=== PATIENT | female | born 1990 | race Caucasian/White ===

== ENCOUNTER 2017-04-17 17:10 | Emergency (ER) | payer BC, OTHER ==
[~2017-04-17] VITALS: Ht 167.6 cm; Wt 75.7 kg
[~2017-04-17 17:10] MED LIST: ALBU6.7H INH; PROM6.257 PO; TYLE500T PO; ZITH250T PO
[2017-04-17 19:34] LABS: BLOOD, URINE NEG (NEG); COMMENT (UR) CULT NOT INDICATED; CULTURE IF INDICATED CULT NOT INDICATED; GLUCOSE,URINE NEG (NEG); KETONE, URINE NEG (NEG); NITRITE,URINE NEG (NEG); PH, URINE 7.5 (5.0-8.5); URINE COLOR COLORLESS (YELLW/STRAW)
[2017-04-17 19:38] LABS: HEMATOCRIT 32.9 % (35.0-46.0); MEAN CORPUSCULAR HEMOGLOBIN 30.3 PG (27.0-34.0); MEAN CORPUSCULAR HGB CONC 34.8 % (32.0-36.0); PLATELET COUNT 276 TH/MM3 (150-450); RED BLOOD COUNT 3.78 MIL/MM3 (4.00-5.30); RED CELL DISTRIBUTION WIDTH 12.9 % (11.6-17.2); REVIEW FLAG FINAL; WHITE BLOOD COUNT 13.1 TH/MM3 (4.0-11.0)
--- NOTE | 2017-04-17 20:10 | PD ---
HPI Travel History International Travel<30 Days: No Contact w/Intl Traveler<30Days: No Known Affected Area: No History of Present Illness HPI Pt is a 26yo at 20 weeks and 4 days presenting with left sided flank pain. pain started last night and lasted a couple of hours. Pain returning this morning and radiated anteriorly. No vaginal bleeding or leaking. Denies any urinary symptoms. 'flutters' care with Dr Duran. Weeks Gestation: 39 Para: 0 : 1 History Past Medical History Narrative Medical h/o Nephrolithiasis. H/p Lithotrypsy 2007. Medical History: Denies Significant Hx Obstetric History Obstetric History PRIMIGRAVIDA Past Surgical History Surgical History: No Previous Surgery Family History Family History: Negative Social History Alcohol Use: No Tobacco Use: No Substance Abuse: No Allergies-Medications (Allergen,Severity, Reaction): Coded Allergies: nickel (Verified Allergy, Severe, hives, 04/17/17) Home Meds Active Scripts Promethazine W/Codeine (Phenergan W/Codeine) 6.25-10 mg/5 ml Ml, 2.5 ML PO qhsprn, #120 0 Refills Prov:AUSTIN COX M.D. 08/07/08 Azithromycin (Zithromax Z-Alex) 250 Mg Tab, 250 MG PO DIRECTED for 5 Days, 0 Refills 500 MG (2 TABLETS) PO ON DAY 1, THEN 250 MG (1 TABLET) PO ON DAYS 2 TO 5. Prov:AUSTIN COX M.D. 08/07/08 Albuterol Sulfate (Proventil Hfa) 6.7 Gm Aero, 2 PUFF INH Q4 for 7 Days, 0 Refills Prov:AUSTIN COX M.D. 08/07/08 Reported Medications Acetaminophen (Acetaminophen) 500 Mg Tab, 1000 MG PO Q6HPRN, 0 Refills 08/07/08 Review of Systems Except as stated in HPI: all other systems reviewed are Neg Physical Exam Narrative GENERAL: Well-nourished, well-developed patient. SKIN: Warm and dry. HEAD: Normocephalic and atraumatic. EYES: No scleral icterus. No injection or drainage. ENT: No nasal drainage noted. Mucous membranes pink. Airway patent. NECK: Supple, trachea midline. No JVD. CARDIOVASCULAR: Regular rate and rhythm without murmurs, gallops, or rubs. RESPIRATORY: Breath sounds equal bilaterally. No accessory muscle use. BREASTS: Bilateral exam showed no masses , no retractions, no nipple discharge. ABDOMEN/GI: Abdomen soft, non-tender, bowel sounds present, no rebound, no guarding left flank tenderness, Gravid to [20 ] weeks size Fundal Height: [-] GENITOURINARY: External Genitalia: intact and normal in appearance BUS glands: [-] Cervix: [firm] Dilatation: [closed] Effacement: [-uneffaced] Station: [-] Presentation: [] Membranes: [intact or ruptured] Uterine Contractions: [-] FHT's: Category: [-] Baseline: [-] Reactive: [-] Variability: [-] Decels: [-] EXTREMITIES: No cyanosis or edema. BACK: Nontender without obvious deformity. No CVA tenderness. NEUROLOGICAL: Awake and alert. Motor and sensory grossly within normal limits. Five out of 5 muscle strength in all muscle groups. Normal speech. Data Data Vital Signs Reviewed: Yes Orders Orders Vital Signs (Adult) .ON ADMISSION (04/17/17 18:52) ^ Labor Status (04/17/17 18:52) Urinalysis - C+S If Indicated (04/17/17 18:52) Diet Liquid (04/17/17 Dinner) Cbc No Diff, Includes Plts (04/17/17 18:52) Labs Laboratory Tests Test 04/17/17 18:40 04/17/17 18:45 Urine Color COLORLESS Urine Turbidity CLEAR Urine pH 7.5 Urine Specific Becker 1.004 Urine Protein NEG Urine Glucose (UA) NEG Urine Ketones NEG Urine Occult Blood NEG Urine Nitrite NEG Urine Bilirubin NEG Urine Urobilinogen LESS THAN 2.0 Urine Leukocyte Esterase NEG Microscopic Urinalysis Comment CULT NOT INDICATED White Blood Count 13.1 Red Blood Count 3.78 Hemoglobin 11.4 Hematocrit 32.9 Mean Corpuscular Volume 87.0 Mean Corpuscular Hemoglobin 30.3 Mean Corpuscular Hemoglobin Concent 34.8 Red Cell Distribution Width 12.9 Platelet Count 276 Mean Platelet Volume 8.6 MDM Medical Record Reviewed: Yes Plan Pyelonephritis ruled out. UA wnl, WCC wnl. Advised liberal fluids. Advised modified bed rest ( note provided for work 04-18-2017) Diagnosis Diagnosis: Primary Impression: 20 weeks gestation of Additional Impression: Abdominal pain affecting Disposition: 01 DISCHARGE HOME Condition: Stable Patient Instructions: General Instructions, Diet (GEN), Movement (ED), Abdominal Pain in (ED) Departure Forms: Tests/Procedures Taj Doll MD Apr 17, 2017 20:10
== END 2017-04-17 19:40 | disposition home or self-care (01) ==
LOC: HOBED 17:10
DX: O26.892 Other specified pregnancy related conditions, second trimester (principal); R10.9 Unspecified abdominal pain; Z3A.20 20 weeks gestation of pregnancy
CPT/HCPCS: 59025; 81001; 85027

== ENCOUNTER 2017-07-26 21:34 | Emergency (ER) | payer BC ==
--- NOTE | 2017-07-26 22:27 | PD ---
HPI Chief Complaint vaginal pressure since about 16:00 Bilateral low back pain 34 weeks and 6 days Date Seen: Jul 26, 2017 Time Seen: 22:10 Travel History International Travel<30 Days: No Contact w/Intl Traveler<30Days: No Known Affected Area: No History of Present Illness HPI Patient is a 27 yo G 1 P0 at 34 weeks and 6 days. [facility] 08-31-[address] Lim. Pt states that pressure in vagina is intermittent, sharp. Denies any dysuria, but feels urge to void with episodes of sharp pain. Associated back pain. Active movements. No abdominal pain or contractions. No vaginal bleeding or discharge. Active movements. Weeks Gestation: 34 Para: 0 : 1 History Past Medical History Medical History: Denies Significant Hx Obstetric History Obstetric History Primigravida Past Surgical History Surgical History: No Previous Surgery Family History Family History: Negative Social History Alcohol Use: No Tobacco Use: No Substance Abuse: No Allergies-Medications (Allergen,Severity, Reaction): Coded Allergies: nickel (Verified Allergy, Severe, hives, 04/17/17) Home Meds Active Scripts Promethazine W/Codeine (Phenergan W/Codeine) 6.25-10 mg/5 ml Ml, 2.5 ML PO qhsprn, #120 0 Refills Prov:AUSTIN COX M.D. 08/07/08 Azithromycin (Zithromax Z-Alex) 250 Mg Tab, 250 MG PO DIRECTED for 5 Days, 0 Refills 500 MG (2 TABLETS) PO ON DAY 1, THEN 250 MG (1 TABLET) PO ON DAYS 2 TO 5. Prov:AUSTIN COX M.D. 08/07/08 Albuterol Sulfate (Proventil Hfa) 6.7 Gm Aero, 2 PUFF INH Q4 for 7 Days, 0 Refills Prov:AUSTIN COX M.D. 08/07/08 Reported Medications Acetaminophen (Acetaminophen) 500 Mg Tab, 1000 MG PO Q6HPRN, 0 Refills 08/07/08 Review of Systems Except as stated in HPI: all other systems reviewed are Neg Physical Exam Narrative GENERAL: Well-nourished, well-developed patient. SKIN: Warm and dry. HEAD: Normocephalic and atraumatic. EYES: No scleral icterus. No injection or drainage. ENT: No nasal drainage noted. Mucous membranes pink. Airway patent. NECK: Supple, trachea midline. No JVD. CARDIOVASCULAR: Regular rate and rhythm without murmurs, gallops, or rubs. RESPIRATORY: Breath sounds equal bilaterally. No accessory muscle use. BREASTS: Bilateral exam showed no masses , no retractions, no nipple discharge. ABDOMEN/GI: Abdomen soft, non-tender, bowel sounds present, no rebound, no guarding NO CVA TENDERNESS. Tender over both hips. Gravid to [35] weeks size Fundal Height: [35cm] GENITOURINARY: External Genitalia: intact and normal in appearance BUS glands: [wnl] Cervix: [firm] Dilatation: [closed] Effacement: [30%] Station: [high] Presentation: [-] Membranes: [intact] Uterine Contractions: [none] FHT's: Category: [1] Baseline: [120s] Reactive: [-] Variability: [moderate] Decels: [none] EXTREMITIES: No cyanosis or edema. BACK: Nontender without obvious deformity. No CVA tenderness. NEUROLOGICAL: Awake and alert. Motor and sensory grossly within normal limits. Five out of 5 muscle strength in all muscle groups. Normal speech. Data Data Vital Signs Reviewed: Yes [facility] Medical Record Reviewed: Yes Plan Patient is a 27 yo at 34 weeks and 6 days who presented to ER with c/o intermittent vaginal pressure. She has no urinary symptoms and no uterine contractions palpated, felt or seen on TOCO. Cervix is closed and high. We will send UA. UA shows large LE, Diagnosis Diagnosis: Primary Impression: 34 weeks gestation of Additional Impressions: Vaginal discomfort UTI (urinary tract infection) Disposition: 01 DISCHARGE HOME Condition: Good Scripts Nitrofurantoin Monohydrate Macrocrystals (Macrobid) 100 Mg Cap 100 MG PO BID for Infection, #10 CAP 0 Refills Prov: Taj Doll MD 07/26/17 Patient Instructions: General Instructions, Having Your Baby: The Labor Process (GEN) Departure Forms: Tests/Procedures Taj Doll MD Jul 26, 2017 22:27
[2017-07-26 22:41] LABS: AMORPHOUS SEDIMENT, URINE RARE; BACTERIA, URINE MANY /hpf; BILIRUBIN, URINE NEG (NEG); BLOOD, URINE NEG (NEG); GLUCOSE,URINE NEG (NEG); KETONE, URINE NEG (NEG); NITRITE,URINE NEG (NEG); PH, URINE 6.5 (5.0-8.5); SQUAMOUS EPITHELIAL CELL URINE 8 /hpf (0-5); URINE COLOR LIGHT-YELLOW (YELLW/STRAW); URINE LEUKOCYTE ESTERASE LARGE (NEG)
[2017-07-26] MEDS ORDERED: MACR100C2 PO (22:49)
[2017-07-26] MEDS ORDERED: NITROFURANTOIN MONOHYD MACROCR 100 MG CAP PO ONE (23:00)
== END 2017-07-26 23:17 | disposition home or self-care (01) ==
LOC: HOBED 21:34
DX: O23.43 Unspecified infection of urinary tract in pregnancy, third trimester (principal); Z3A.01 Less than 8 weeks gestation of pregnancy
CPT/HCPCS: 59025; 81001; 87086

== ENCOUNTER 2017-08-10 17:01 | Emergency (ER) | payer BC ==
[~2017-08-10 17:01] MED LIST changes: +MACR100C2 PO
--- NOTE | 2017-08-10 18:54 | PD ---
HPI Chief Complaint Leaking of fluid Travel History International Travel<30 Days: No Contact w/Intl Traveler<30Days: No Known Affected Area: No History of Present Illness HPI 27y/o , IUP at 37.0 care uncomplicated. Patient presents complaining of leaking of a small amount of fluid about 5-6 times today. She reports that she used the bathroom at 9am, and 20 minutes later she felt "wet." She thinks this happened about 5 or 6 times today. There were no aggravating or alleviating factors, she denies recent intercourse. She reports that she believes she would have soaked through a panty liner. She reports good movement. She reports contractions are about every 15 minutes and mild in nature. She denies any vaginal bleeding. Weeks Gestation: 37 Para: 0 : 1 History Past Medical History Medical History: Denies Significant Hx Obstetric History Obstetric History Past Surgical History Narrative Surgical [place] teeth extraction Family History Family History: Negative Social History Alcohol Use: No Tobacco Use: No Substance Abuse: No Allergies-Medications (Allergen,Severity, Reaction): Coded Allergies: nickel (Verified Allergy, Severe, hives, 04/17/17) Home Meds Active Scripts Nitrofurantoin Monohydrate Macrocrystals (Macrobid) 100 Mg Cap, 100 MG PO BID for Infection, #10 CAP 0 Refills Prov:Taj Doll MD 07/26/17 Promethazine W/Codeine (Phenergan W/Codeine) 6.25-10 mg/5 ml Ml, 2.5 ML PO qhsprn, #120 0 Refills Prov:AUSTIN COX M.D. 08/07/08 Azithromycin (Zithromax Z-Alex) 250 Mg Tab, 250 MG PO DIRECTED for 5 Days, 0 Refills 500 MG (2 TABLETS) PO ON DAY 1, THEN 250 MG (1 TABLET) PO ON DAYS 2 TO 5. Prov:AUSTIN COX M.D. 08/07/08 Albuterol Sulfate (Proventil Hfa) 6.7 Gm Aero, 2 PUFF INH Q4 for 7 Days, 0 Refills Prov:AUSTIN COX M.D. 08/07/08 Reported Medications Acetaminophen (Acetaminophen) 500 Mg Tab, 1000 MG PO Q6HPRN, 0 Refills 08/07/08 Review of Systems Except as stated in HPI: all other systems reviewed are Neg Physical Exam Narrative GENERAL: Well-nourished, well-developed patient. SKIN: Warm and dry. HEAD: Normocephalic and atraumatic. EYES: No scleral icterus. No injection or drainage. ENT: No nasal drainage noted. Mucous membranes pink. Airway patent. NECK: Supple, trachea midline. No JVD. CARDIOVASCULAR: Regular rate and rhythm without murmurs, gallops, or rubs. RESPIRATORY: Breath sounds equal bilaterally. No accessory muscle use. BREASTS: Deferred ABDOMEN/GI: Abdomen soft, non-tender, bowel sounds present, no rebound, no guarding Gravid GENITOURINARY: External Genitalia: intact and normal in appearance. Grossly normal rugated , no cervical or vaginal masses, physiologic discharge, speculum examination revealed no evidence of gross rupture of membranes and negative Valsalva. Amniosure negative. SVE 1/thick/high/posterior FHT's: heart tones are in the 150s with moderate long-term variability, good accelerations, no decelerations noted. This is a reactive NST and category 1 heart rate tracing EXTREMITIES: No cyanosis or edema. BACK: Nontender without obvious deformity. NEUROLOGICAL: Awake and alert. Motor and sensory grossly within normal limits. Five out of 5 muscle strength in all muscle groups. Normal speech. Psychiatric: Grossly normal memory and affect Muscular skeletal: Grossly normal range of motion, gait, muscle strength MDM Plan Assessment/plan: 1. IUP at 37.0 2. LOF: No evidence of rupture of membranes with negative amniosure and negative examination. Normal ELIZABETH on limited bedside ultrasound. Strict R OM precautions 3. No evidence of labor: Strict labor precautions 4. well-being: Reassuring testing with reactive NST and category 1 heart rate tracing. kick counts daily 5. Follow up with primary OB in 2-3 days or sooner if needed Diagnosis Diagnosis: Primary Impression: 37 weeks gestation of Additional Impression: No leakage of amniotic fluid into vagina Disposition: 01 DISCHARGE HOME Condition: Good Britt Shafer MD Aug 10, 2017 18:54
--- NOTE | 2017-08-10 20:19 | PD ---
History of Present Illness History of Present Illness OB U/S report Indications: IUP at 37w, LOF U/S was performed for ELIZABETH only, no anatomy was reviewed. The fetus is in the cephalic presentation with good movement noted. The ELIZABETH is 13.08 ( 4.58, 4.55, 2.06, 1.89) and is normal. Final dx: IUP at 37w, no evidence of labor or PROM F/U as clinically indicated Britt Shafer MD Aug 10, 2017 20:19
== END 2017-08-10 20:23 | disposition home or self-care (01) ==
LOC: HOBED 17:01
DX: O26.93 Pregnancy related conditions, unspecified, third trimester (principal)
CPT/HCPCS: 59025; 76815; 84112

== ENCOUNTER 2017-08-20 11:50 | Inpatient (IN) | payer BC ==
[~2017-08-20] VITALS: Ht 167.6 cm; Wt 84.8 kg
[2017-08-20] VITALS (10 sets, daily range): BP systolic 96–121; BP diastolic 57–75; PULSE 81–90; RESP 16–18; TEMP 97.8–98.3
[2017-08-20] MEDS ORDERED: LACTATED RINGER'S 1000 ML INJ 1,000 ML IV PRN (13:06)
[2017-08-20] MEDS ORDERED: MINERAL OIL 10 ML VIAL TOPICAL PRN (13:15)
[2017-08-20] MEDS ORDERED: ONDANSETRON HCL 4 MG/2 ML VIAL IV PUSH PRN (13:15)
[2017-08-20] MEDS ORDERED: SODIUM CHLORID 0.9% 500 ML INJ 500 ML IV PRN (13:15)
[2017-08-20] MEDS ORDERED: SODIUM CHLORIDE 0.9% FLUSH 10 ML FLUSH IV FLUSH PRN (13:15)
[2017-08-20] MEDS ORDERED: LIDOCAINE HCL 1% 50 ML VIAL I-DERMAL PRN (13:15)
[2017-08-20] MEDS ORDERED: LIDOCAINE HCL 1% 50 ML VIAL INFIL PRN (13:15)
[2017-08-20] MEDS ORDERED: CITRIC ACID-SODIUM CITRATE LIQ 30 ML UDC PO SCH (13:15)
[2017-08-20] MEDS ORDERED: DINOPROSTONE 10 MG VAG INSERT VAGINAL ONE (13:15)
[2017-08-20] MEDS ORDERED: OXYTOCIN 30 UNITS-500ML PREMIX 500 ML IV ONE (13:15)
[2017-08-20] MEDS ORDERED: SODIUM CHLOR 0.9% 1000 ML INJ 1,000 ML IV PRN (13:26)
[2017-08-20 13:29] LABS: AUTOMATED NEUTROPHIL # 9.5 TH/MM3 (1.8-7.7); BASOPHIL % 0.3 % (0.0-2.0); EOSINOPHIL % 0.4 % (0.0-4.0); HEMATOCRIT 34.6 % (35.0-46.0); HEMOGLOBIN 11.7 GM/DL (11.6-15.3); LYMPH % 11.7 % (9.0-44.0); LYMPHOCYTE # 1.4 TH/MM3 (1.0-4.8); MEAN CELL VOLUME 84.1 FL (80.0-100.0); MEAN CORPUSCULAR HEMOGLOBIN 28.4 PG (27.0-34.0); MEAN CORPUSCULAR HGB CONC 33.8 % (32.0-36.0); MONO % 5.7 % (0.0-8.0); MONOCYTE # 0.7 TH/MM3 (0-0.9); NEUT % 81.9 % (16.0-70.0); PLATELET COUNT 206 TH/MM3 (150-450); RED BLOOD COUNT 4.12 MIL/MM3 (4.00-5.30); RED CELL DISTRIBUTION WIDTH 13.3 % (11.6-17.2); WHITE BLOOD COUNT 11.6 TH/MM3 (4.0-11.0)
[2017-08-20 13:32] LABS: AMORPHOUS SEDIMENT, URINE RARE; BACTERIA, URINE OCC /hpf; BILIRUBIN, URINE NEG (NEG); BLOOD, URINE MOD (NEG); GLUCOSE,URINE NEG (NEG); KETONE, URINE NEG (NEG); MUCUS URINE FEW /lpf (OCC); NITRITE,URINE NEG (NEG); SQUAMOUS EPITHELIAL CELL URINE 5 /hpf (0-5); URINE COLOR YELLOW (YELLW/STRAW); URINE LEUKOCYTE ESTERASE MOD (NEG)
[2017-08-20] MEDS: LACTATED RINGER'S 1000 ML INJ 1,000 ML IV SCH (14:44)
--- NOTE | 2017-08-20 14:52 | MH ---
cc: [facility] DATE OF ADMISSION 08/20/2017 HISTORY OF PRESENT ILLNESS This is a 26-year-old 1, para 0 intrauterine at 38-3/7 weeks with oligohydramnios. ELIZABETH of 3 cm. care has been with [place] [employer] uncomplicated to this point. She is group B strep negative. Her GCT was normal. Estimated weight today was 4012 grams, 8 pounds 14 ounces. OBSTETRICAL HISTORY She is 1, para 0. PAST [employer] HISTORY Unremarkable. She had a normal Pap smear in November 2016. PAST MEDICAL HISTORY She denies hypertension, diabetes or asthma. PAST SURGICAL HISTORY She denies. SOCIAL HISTORY She denies toxic habits. MEDICATIONS She takes vitamins. ALLERGIES She has no known drug allergies. She is allergic to NICKEL. PHYSICAL EXAM On physical exam, her vital signs are stable. Blood pressure is 132/76. She is 194 pounds. HEAD, HEART, CHEST, LUNG: Exams are within normal limits. ABDOMEN: Soft, nontender, gravid. PELVIC: She is 1-2 cm dilated, 50% effaced, -1 station, vertex presentation on ultrasound today ELIZABETH was 3.7 cm. ASSESSMENT/PLAN She is a 26-year-old 1, para 0 intrauterine at 38-3/7 weeks with oligohydramnios. She will be admitted to labor and delivery for Cervidil ripening. The risks, benefits, alternatives of induction have been explained to the patient. All of her questions have been answered. MD LORENZA Garcia/JOSÉ LUIS /10:12 AM /2:49 PM
[2017-08-20] MEDS: ACETAMINOPHEN 325 MG TAB PO PRN (17:59)
[2017-08-20] MEDS ORDERED: ZOLPIDEM TARTRATE 5 MG TAB PO PRN (20:15)
[2017-08-20] MEDS: SODIUM CHLORIDE 0.9% FLUSH 10 ML FLUSH IV FLUSH SCH (21:00)
[2017-08-21] VITALS (100 sets, daily range): BP systolic 105–138; BP diastolic 55–93; PULSE 69–110; RESP 9–20; TEMP 97.9–100.1; O2SAT 97–100
[2017-08-21] MEDS: LACTATED RINGER'S 1000 ML INJ 1,000 ML IV SCH ×3 (02:17→08:54)
[2017-08-21] MEDS ORDERED: OXYTOCIN 30 UNITS/NS 500ML PREMIX IV PRN (03:15)
[2017-08-21] MEDS: SODIUM CHLORIDE 0.9% FLUSH 10 ML FLUSH IV FLUSH SCH (09:00)
--- NOTE | 2017-08-21 09:29 | PD.LABORPN ---
Subjective Subjective doing well, not uncomfortable w ctx Objective Vital Signs Vital Signs Date Time Temp Pulse Resp B/P (MAP) Pulse Ox O2 Delivery O2 Flow Rate FiO2 08/21/17 09:01 80 116/62 (80) 08/21/17 09:00 20 08/21/17 08:46 95 134/80 (98) 08/21/17 08:09 20 08/21/17 08:00 81 132/74 (93) 08/21/17 07:55 20 08/21/17 07:15 97.9 20 08/21/17 07:15 77 113/62 (79) 08/21/17 07:00 84 115/71 (86) 08/21/17 06:30 69 127/82 (97) 08/21/17 06:04 95 118/72 (87) 08/21/17 05:30 78 117/67 (84) 08/21/17 05:24 98.3 16 08/21/17 05:23 16 08/21/17 05:22 79 112/69 (83) 08/21/17 02:11 79 118/73 (88) 08/21/17 02:11 18 08/21/17 02:11 98.2 Objective Pelvic Exam: Cervix:2-3/50/-3, AROM, clear, iupc placed Cephalic Uterine Contractions:3-5min FHT's: Category:I Baseline: [-] Reactive:y Variability: mod Decels: [-] Pt started active labor?: No Medical induction of labor?: Yes Medical induction start date: Aug 20, 2017 Artificial rupture of membrane: Yes Artificial ROM date: Aug 21, 2017 Assessment/Plan Problem List: (1) Oligohydramnios ICD Codes: O41.00X0 - Oligohydramnios, unspecified trimester, not applicable or unspecified (2) Large for gestational age fetus affecting management of mother ICD Codes: O36.60X0 - Maternal care for excessive growth, unspecified trimester, not applicable or unspecified Assessment and Plan 26-year-old 1, para 0 intrauterine at 38-4/7 weeks admitted for iol 2/2 oligohydramnios 1) IOL- s/p cervidil oernight, on pitocin. S/p arom and iupc placement this check. 2) LGA- shoulder dystocia precautions, november have arrest of labor and require cd 3) GBS negative 4) Fetus - Female "Cecilia" Cat I tracing Patria Bejarano MD Aug 21, 2017 09:29
[2017-08-21] MEDS ORDERED: fentaNYL 2MCG-BUPIV 0.125% INJ 100 ML ONE (09:51)
[2017-08-21] MEDS ORDERED: ePHEDrine/NS 25 MG/5 ML SYRINGE ONE ×2 (09:51→10:00)
[2017-08-21] MEDS ORDERED: BUPIVACAINE HCL PF 0.25% 10 ML VIAL ONE ×2 (10:00→14:05)
[2017-08-21] MEDS ORDERED: fentaNYL 2MCG-BUPIV 0.125% 100 ML EPIDURAL SCH (11:00)
[2017-08-21] MEDS ORDERED: NO SYSTEM NARCOTICS PRN (11:00)
[2017-08-21] MEDS ORDERED: ePHEDrine/NS 25 MG/5 ML SYRINGE IV PUSH PRN (11:00)
[2017-08-21] MEDS ORDERED: DO NOT ADMINISTER ANTICOAGULANTS PRN (11:00)
[2017-08-21] MEDS ORDERED: ceFAZolin INJ 1,000 MG VIAL IV ONE (12:00)
[2017-08-21] MEDS ORDERED: DEXAMETHASONE SOD PHOS 4 MG/ML VIAL IV ONE (12:00)
[2017-08-21] MEDS ORDERED: ePHEDrine/NS 25 MG/5 ML SYRINGE IV ONE (12:00)
[2017-08-21] MEDS ORDERED: ONDANSETRON HCL 4 MG/2 ML VIAL IV ONE (12:00)
[2017-08-21] MEDS ORDERED: OXYTOCIN 10 UNIT/ML AMP IV ONE (12:00)
[2017-08-21] MEDS ORDERED: LIDOCAINE 2%/EPINEPHrine PF 1:200,000 20ML SDV OTHER ONE (12:00)
--- NOTE | 2017-08-21 14:56 | PD.LABORPN ---
Subjective Subjective pt comfortable with epidural Objective Vital Signs Vital Signs Date Time Temp Pulse Resp B/P (MAP) Pulse Ox O2 Delivery O2 Flow Rate FiO2 08/21/17 14:37 20 08/21/17 14:30 74 123/75 (91) 08/21/17 14:00 81 126/69 (88) 08/21/17 13:30 76 132/73 (92) 08/21/17 13:22 20 08/21/17 13:22 98.1 08/21/17 13:00 78 114/70 (85) 08/21/17 12:30 80 113/65 (81) 08/21/17 12:04 20 08/21/17 12:00 75 118/72 (87) 08/21/17 11:49 20 08/21/17 11:30 74 115/68 (84) 08/21/17 11:17 20 08/21/17 11:11 79 121/66 (84) 08/21/17 11:05 82 08/21/17 11:05 82 122/83 (96) 08/21/17 11:00 85 08/21/17 11:00 94 131/82 (98) 08/21/17 10:55 78 120/73 (89) 08/21/17 10:55 82 08/21/17 10:50 80 124/69 (87) 08/21/17 10:50 87 08/21/17 10:45 87 121/64 (83) 08/21/17 10:45 81 08/21/17 10:40 89 114/60 (78) 99 08/21/17 10:40 85 08/21/17 10:38 87 120/65 (83) 08/21/17 10:37 80 106/66 (79) 08/21/17 10:35 84 106/55 (72) 98 08/21/17 10:35 85 08/21/17 10:30 92 123/79 (94) 99 08/21/17 10:30 82 08/21/17 10:25 90 08/21/17 10:25 103 129/82 (98) 98 08/21/17 10:21 89 138/70 (92) 08/21/17 10:20 94 97 08/21/17 10:19 95 123/80 (94) 08/21/17 10:15 86 98 08/21/17 10:10 93 100 08/21/17 10:05 105 100 08/21/17 10:01 78 119/71 (87) 08/21/17 09:51 18 08/21/17 09:46 76 133/77 (95) 08/21/17 09:18 20 08/21/17 09:01 80 116/62 (80) 08/21/17 09:00 20 08/21/17 08:46 95 134/80 (98) 08/21/17 08:09 20 08/21/17 08:00 81 132/74 (93) 08/21/17 07:55 20 08/21/17 07:15 97.9 20 08/21/17 07:15 77 113/62 (79) 08/21/17 07:00 84 115/71 (86) Objective Pelvic Exam: Cervix: [-] Dilatation: [-] 6-7 Effacement: [-] 60 Station: [-] -2 Presentation: [-] vtx Membranes: [intact or ruptured] arom this am Uterine Contractions: [-] q2-3 min FHT's: Category: [-] 1 Baseline: [-] Reactive: [-] R Variability: [-] good Decels: [-] Weeks Gestation: 38 Gest Age Assessed Date: Aug 21, 2017 Gest Age Assessed Time: 14:53 Pt started active labor?: Yes Active labor start date: Aug 21, 2017 Active labor start time: 08:40 Medical induction of labor?: Yes Medical induction start date: Aug 19, 2017 Medical induction start time: 14:30 Artificial rupture of membrane: Yes Artificial ROM date: Aug 21, 2017 Artifical ROM time: 08:40 Assessment/Plan Problem List: (1) Oligohydramnios ICD Codes: O41.00X0 - Oligohydramnios, unspecified trimester, not applicable or unspecified (2) Large for gestational age fetus affecting management of mother ICD Codes: O36.60X0 - Maternal care for excessive growth, unspecified trimester, not applicable or unspecified Status: Acute Assessment and Plan IUP at 38 4/7 oligo, LGA on pit 8 mu, IUPC , ctx adeguate, has epidural f/u labor progress Nikia Lim MD Aug 21, 2017 14:55
[2017-08-21] MEDS: ACETAMINOPHEN 325 MG TAB PO PRN (18:15)
[2017-08-21] MEDS ORDERED: LIDOCAINE HCL 1% PF 5 ML AMPULE ONE (19:00)
[2017-08-21] MEDS ORDERED: ACETAMINOPHEN 1000 MG/100 ML 100 ML IV ONE (22:20)
[2017-08-21] MEDS ORDERED: CITRIC ACID-SODIUM CITRATE LIQ 30 ML UDC PO SCH (22:45)
[2017-08-21] MEDS ORDERED: LACTATED RINGER'S 1000 ML IV ONE (22:45)
[2017-08-21] MEDS ORDERED: LACTATED RINGER'S 1000 ML IV SCH (22:45)
[2017-08-21] MEDS ORDERED: ceFAZolin 2 GM PREMIX 50 ML IV SCH (22:45)
[2017-08-21] MEDS ORDERED: MORPHINE SULFATE PF 5 MG/10 ML VIAL ONE (23:24)
[2017-08-21] MEDS ORDERED: EPIDURAL-DIPHENHYDRAMINE HCL 50 MG/ML VIAL IV PUSH PRN (23:28)
[2017-08-21] MEDS ORDERED: EPIDURAL-NALOXONE HCL 0.4 MG/ML AMP IV PUSH PRN (23:28)
[2017-08-21] MEDS ORDERED: EPIDURAL-DO NOT ADMINISTER ANTICOAGULANTS PRN (23:28)
[2017-08-21] MEDS ORDERED: EPIDURAL-DIPHENHYDRAMINE HCL 50 MG CAP PO PRN (23:28)
[2017-08-21] MEDS ORDERED: EPIDURAL-NO SYSTEMIC NARCOTICS PRN (23:28)
[2017-08-21] MEDS ORDERED: KETOROLAC TROMETHAMINE 60 MG/2 ML (IM) VIAL IM PRN (23:45)
[2017-08-21] MEDS ORDERED: OXYTOCIN 30 UNITS-500ML PREMIX 500 ML IV ONE (23:45)
[2017-08-21] MEDS ORDERED: SODIUM CHLORIDE 0.9% FLUSH 10 ML FLUSH IV FLUSH PRN (23:45)
[2017-08-21] MEDS ORDERED: ONDANSETRON HCL 4 MG/2 ML VIAL IV PUSH PRN (23:45)
[2017-08-21] MEDS ORDERED: ACETAMINOPHEN 325 MG TAB PO PRN (23:45)
[2017-08-21] MEDS ORDERED: SIMETHICONE 80 MG CHEWABLE TAB PO PRN (23:45)
[2017-08-21] MEDS ORDERED: oxyCODONE/ACETAMINOPHEN 5 MG/325 MG TAB PO PRN (23:45)
[2017-08-21] MEDS ORDERED: ZOLPIDEM TARTRATE 5 MG TAB PO PRN (23:45)
[2017-08-21] MEDS ORDERED: MIDAZOLAM HCL 2 MG/2 ML VIAL ONE (23:51)
[2017-08-22] VITALS (10 sets, daily range): BP systolic 101–136; BP diastolic 61–82; PULSE 66–96; RESP 14–18; TEMP 98–99.2; O2SAT 95–99
[2017-08-22] MEDS ORDERED: KETOROLAC TROMETHAMINE 60 MG/2 ML (IM) VIAL IM ONE (00:34)
[2017-08-22] MEDS ORDERED: LACTATED RINGER'S 1000 ML INJ 1,000 ML IV SCH (04:32)
[2017-08-22] MEDS: oxyCODONE/ACETAMINOPHEN 5 MG/325 MG TAB PO PRN ×3 (06:43→21:16)
[2017-08-22] MEDS: IBUPROFEN 600 MG TAB PO PRN ×3 (06:43→21:16)
[2017-08-22 08:30] LABS: AUTOMATED NEUTROPHIL # 15.4 TH/MM3 (1.8-7.7); BASOPHIL % 0.1 % (0.0-2.0); HEMATOCRIT 30.7 % (35.0-46.0); HEMOGLOBIN 10.4 GM/DL (11.6-15.3); LYMPH % 4.2 % (9.0-44.0); LYMPHOCYTE # 0.7 TH/MM3 (1.0-4.8); MEAN CELL VOLUME 84.6 FL (80.0-100.0); MEAN CORPUSCULAR HEMOGLOBIN 28.7 PG (27.0-34.0); MEAN CORPUSCULAR HGB CONC 33.9 % (32.0-36.0); MEAN PLATELET VOLUME 9.3 FL (7.0-11.0); MONO % 7.8 % (0.0-8.0); MONOCYTE # 1.4 TH/MM3 (0-0.9); NEUT % 87.9 % (16.0-70.0); PLATELET COUNT 158 TH/MM3 (150-450); RED BLOOD COUNT 3.62 MIL/MM3 (4.00-5.30); WHITE BLOOD COUNT 17.5 TH/MM3 (4.0-11.0)
[2017-08-22] MEDS ORDERED: SODIUM CHLORIDE 0.9% FLUSH 10 ML FLUSH IV FLUSH SCH (09:00)
--- NOTE | 2017-08-22 09:26 | HHI.OB ---
Subjective Post Operative Day: 1 Remarks doing well holding pain controlled Objective Vitals/I&O Vital Signs Date Time Temp Pulse Resp B/P (MAP) Pulse Ox O2 Delivery O2 Flow Rate FiO2 08/22/17 08:00 96 16 121/77 (92) 96 08/22/17 08:00 98.2 72 08/22/17 04:40 98.3 66 18 118/72 (87) 98 08/22/17 01:10 99.2 97 08/22/17 01:10 77 18 136/82 (100) 08/22/17 00:51 89 14 08/22/17 00:50 98.2 99 08/22/17 00:32 88 15 132/71 (91) 99 08/22/17 00:16 126/76 (93) 08/22/17 00:16 130/82 (98) 08/22/17 00:16 92 14 99 08/21/17 23:57 96 9 130/82 (98) 08/21/17 23:57 98.3 99 08/21/17 23:57 17 08/21/17 22:20 100 08/21/17 22:20 108 08/21/17 22:15 93 100 08/21/17 22:10 91 100 08/21/17 22:05 110 100 08/21/17 22:00 108 134/93 (107) 100 08/21/17 22:00 97 08/21/17 21:55 85 98 08/21/17 21:50 81 98 08/21/17 21:45 100 99 08/21/17 21:40 80 97 08/21/17 21:35 86 99 08/21/17 21:30 85 08/21/17 21:30 88 119/72 (88) 99 08/21/17 21:25 88 100 08/21/17 21:15 81 97 08/21/17 21:10 84 98 08/21/17 21:05 90 99 08/21/17 21:00 82 122/76 (91) 98 08/21/17 21:00 85 08/21/17 20:55 103 99 08/21/17 20:50 103 99 08/21/17 20:45 82 98 08/21/17 20:40 97 08/21/17 20:40 85 2/9/18 20:35 98 08/21/17 20:35 93 08/21/17 20:30 85 08/21/17 20:30 94 121/75 (90) 08/21/17 20:30 98 08/21/17 20:25 99 08/21/17 20:25 104 08/21/17 20:20 104 08/21/17 20:20 100 08/21/17 20:15 100 08/21/17 20:14 98.6 18 08/21/17 20:10 100 08/21/17 20:05 101 08/21/17 20:05 100 08/21/17 20:00 100 08/21/17 20:00 97 08/21/17 20:00 108 117/66 (83) 08/21/17 19:55 102 100 08/21/17 19:50 102 100 08/21/17 19:45 102 100 08/21/17 19:30 92 120/65 (83) 08/21/17 19:07 89 120/79 (93) 08/21/17 19:06 94 120/82 (95) 08/21/17 19:01 94 114/74 (87) 08/21/17 18:31 88 130/76 (94) 08/21/17 18:30 20 08/21/17 18:00 87 20 134/85 (101) 08/21/17 17:56 100.1 08/21/17 17:30 90 124/72 (89) 08/21/17 17:17 95 122/74 (90) 08/21/17 17:13 99 120/79 (93) 08/21/17 17:10 96 128/78 (95) 08/21/17 17:00 87 118/65 (82) 08/21/17 16:30 97 119/73 (88) 08/21/17 16:00 80 114/60 (78) 08/21/17 15:54 20 08/21/17 15:30 98.8 08/21/17 15:30 79 105/57 (73) 08/21/17 15:01 78 110/57 (74) 08/21/17 14:37 20 08/21/17 14:30 74 123/75 (91) 08/21/17 14:13 75 121/67 (85) 08/21/17 14:12 84 119/72 (88) 08/21/17 14:00 81 126/69 (88) 08/21/17 13:30 76 132/73 (92) 08/21/17 13:22 20 08/21/17 13:22 98.1 08/21/17 13:00 78 114/70 (85) 08/21/17 12:30 80 113/65 (81) 08/21/17 12:04 20 08/21/17 12:00 75 118/72 (87) 08/21/17 11:49 20 08/21/17 11:30 74 115/68 (84) 08/21/17 11:17 20 08/21/17 11:11 79 121/66 (84) 08/21/17 11:05 82 08/21/17 11:05 82 122/83 (96) 08/21/17 11:00 85 08/21/17 11:00 94 131/82 (98) 08/21/17 10:55 78 120/73 (89) 08/21/17 10:55 82 08/21/17 10:50 80 124/69 (87) 08/21/17 10:50 87 08/21/17 10:45 87 121/64 (83) 08/21/17 10:45 81 08/21/17 10:40 89 114/60 (78) 99 08/21/17 10:40 85 08/21/17 10:38 87 120/65 (83) 08/21/17 10:37 80 106/66 (79) 08/21/17 10:35 84 106/55 (72) 98 08/21/17 10:35 85 08/21/17 10:30 92 123/79 (94) 99 08/21/17 10:30 82 08/21/17 10:25 90 08/21/17 10:25 103 129/82 (98) 98 08/21/17 10:21 89 138/70 (92) 08/21/17 10:20 94 97 08/21/17 10:19 95 123/80 (94) 08/21/17 10:15 86 98 08/21/17 10:10 93 100 08/21/17 10:05 105 100 08/21/17 10:01 78 119/71 (87) 08/21/17 09:51 18 08/21/17 09:46 76 133/77 (95) Result Diagram: 08/22/17 0815 Objective Remarks GENERAL: Well-nourished, well-developed patient. CARDIOVASCULAR: Regular rate and rhythm without murmurs, gallops, or rubs. RESPIRATORY: Breath sounds equal bilaterally. No accessory muscle use. ABDOMEN/GI: Abdomen soft, non-tender, bowel sounds present. bandage dry Fundus: Firm, non-tender at umbilicus. GENITOURINARY: Light to moderate bleeding. EXTREMITIES: No cyanosis or edema, non-tender, without signs of DVT. Medications and IVs Current Medications Medications (Trade) Dose Ordered Sig/Margie Route Start Time Stop Time Status Last Admin Lactated Ringer's 1,000 ml @ 100 mls/hr Q10H IV 08/22/17 04:32 08/23/17 00:31 08/22/17 05:45 Oxytocin 500 ml @ 100 mls/hr UNSCH X1 PRN IV 08/22/17 09:45 08/23/17 09:44 (NS Flush) 2 ml BID IV FLUSH 08/22/17 09:00 (NS Flush) 2 ml UNSCH PRN IV FLUSH 08/21/17 23:45 (Mylicon Chew) 80 mg QID PRN PO 08/21/17 23:45 (Tylenol) 650 mg Q6H PRN PO 08/21/17 23:45 (Motrin) 600 mg Q6H PRN PO 08/21/17 23:45 08/22/17 06:43 (Toradol Inj) 60 mg UNSCH X1 PRN IM 08/21/17 23:45 08/22/17 23:44 08/22/17 00:37 (Percocet 5-325 Mg) 1 tab Q4H PRN PO 08/21/17 23:45 08/22/17 06:43 (Percocet 5-325 Mg) 2 tab Q4H PRN PO 08/21/17 23:45 (Isa-Colace) 2 tab Q12H PRN PO 08/21/17 23:45 (Ambien) 5 mg HS PRN PO 08/21/17 23:45 (M-M-R Ii Inj) 0.5 ml ONCE ONCE SQ 08/22/17 16:00 08/22/17 16:01 (Boostrix Inj) 0.5 ml ONCE ONCE IM 08/22/17 16:00 08/22/17 16:01 (Zofran Inj) 4 mg Q6H PRN IV PUSH 08/21/17 23:45 Miscellaneous Information NO SYSTEMIC NARCOTICS TO BE GIVEN FO... UNSCH PRN .XX 08/21/17 23:28 08/22/17 23:27 (Narcan Inj) 0.4 mg UNSCH PRN IV PUSH 08/21/17 23:28 08/22/17 23:27 (Benadryl Inj) 25 mg Q6H PRN IV PUSH 08/21/17 23:28 08/22/17 23:27 08/22/17 06:43 (Benadryl) 50 mg Q6H PRN PO 08/21/17 23:28 08/22/17 23:27 Miscellaneous Information ALL NURSING DEPARTMENTS UNSCH PRN .XX 08/21/17 23:28 08/22/17 23:27 Assessment/Plan Problem List: (1) Oligohydramnios ICD Codes: O41.00X0 - Oligohydramnios, unspecified trimester, not applicable or unspecified (2) Large for gestational age fetus affecting management of mother ICD Codes: O36.60X0 - Maternal care for excessive growth, unspecified trimester, not applicable or unspecified Status: Acute Assessment and Plan Doing well after C/S for failure to progress/failure of descent routine post op care anticipate discharge Thursday Arelis Rowland MD Aug 22, 2017 09:26
[2017-08-22] MEDS ORDERED: OXYTOCIN 30 UNITS-500ML PREMIX 500 ML IV PRN (09:45)
[2017-08-22] MEDS: DOCUSATE SODIUM 50 MG/SENNA 8.6 MG TAB PO PRN (12:47)
[2017-08-22] MEDS ORDERED: DIPHTH/TETANUS/ACEL PERTUSSIS (BOOSTER) 0.5 ML VIAL/PFS IM ONE (16:00)
[2017-08-22] MEDS ORDERED: MEASLES, MUMPS, RUBELLA VACCINE 0.5 ML VIAL SQ ONE (16:00)
[2017-08-23] MEDS: IBUPROFEN 600 MG TAB PO PRN ×3 (03:41→16:46)
[2017-08-23] MEDS: oxyCODONE/ACETAMINOPHEN 5 MG/325 MG TAB PO PRN ×3 (03:41→16:46)
[2017-08-23] MEDS: DOCUSATE SODIUM 50 MG/SENNA 8.6 MG TAB PO PRN (03:42)
[2017-08-23 08:22] VITALS: BP 111/71; PULSE 75; RESP 16; TEMP 98; O2SAT 98
--- NOTE | 2017-08-23 11:37 | HHI.OB ---
Subjective Post Operative Day: 2 Remarks doing well, baby under bili lights Objective Vitals/I&O Vital Signs Date Time Temp Pulse Resp B/P (MAP) Pulse Ox O2 Delivery O2 Flow Rate FiO2 08/23/17 08:22 98.0 75 16 111/71 (84) 98 08/22/17 19:05 114/73 (87) 08/22/17 19:05 98.4 84 18 08/22/17 16:31 98.0 78 16 112/73 (86) 95 08/22/17 11:42 98.0 80 16 101/61 (74) 95 Result Diagram: 08/22/17 0815 Objective Remarks GENERAL: Well-nourished, well-developed patient. CARDIOVASCULAR: Regular rate and rhythm without murmurs, gallops, or rubs. RESPIRATORY: Breath sounds equal bilaterally. No accessory muscle use. ABDOMEN/GI: Abdomen soft, non-tender, bowel sounds present. incision c/intct, dry Fundus: Firm, non-tender at umbilicus. GENITOURINARY: Light to moderate bleeding. EXTREMITIES: No cyanosis or edema, non-tender, without signs of DVT. Medications and IVs Current Medications Medications (Trade) Dose Ordered Sig/Margie Route Start Time Stop Time Status Last Admin (NS Flush) 2 ml BID IV FLUSH 08/22/17 09:00 (NS Flush) 2 ml UNSCH PRN IV FLUSH 08/21/17 23:45 (Mylicon Chew) 80 mg QID PRN PO 08/21/17 23:45 (Tylenol) 650 mg Q6H PRN PO 08/21/17 23:45 (Motrin) 600 mg Q6H PRN PO 08/21/17 23:45 08/23/17 09:57 (Percocet 5-325 Mg) 1 tab Q4H PRN PO 08/21/17 23:45 08/23/17 09:57 (Percocet 5-325 Mg) 2 tab Q4H PRN PO 08/21/17 23:45 (Isa-Colace) 2 tab Q12H PRN PO 08/21/17 23:45 08/23/17 03:42 (Ambien) 5 mg HS PRN PO 08/21/17 23:45 (Zofran Inj) 4 mg Q6H PRN IV PUSH 08/21/17 23:45 Assessment/Plan Problem List: (1) Oligohydramnios ICD Codes: O41.00X0 - Oligohydramnios, unspecified trimester, not applicable or unspecified (2) Large for gestational age fetus affecting management of mother ICD Codes: O36.60X0 - Maternal care for excessive growth, unspecified trimester, not applicable or unspecified Status: Acute Assessment and Plan Doing well after C/S for failure to progress/ routine post op care anticipate discharge Thursday Patria Bejarano MD Aug 23, 2017 11:37
[2017-08-23 13:19] VITALS: BP 117/69; PULSE 83; RESP 12; TEMP 98; O2SAT 95
[2017-08-23 16:46] VITALS: RESP 16
[2017-08-23 20:20] VITALS: BP 126/82; PULSE 81; RESP 17; TEMP 98.2
[2017-08-24] MEDS: DOCUSATE SODIUM 50 MG/SENNA 8.6 MG TAB PO PRN (01:55)
[2017-08-24] MEDS: IBUPROFEN 600 MG TAB PO PRN ×2 (01:55→11:10)
[2017-08-24] MEDS: oxyCODONE/ACETAMINOPHEN 5 MG/325 MG TAB PO PRN ×2 (01:55→11:11)
--- NOTE | 2017-08-24 06:47 | MP ---
cc: CRUZ LIM DATE OF SURGERY 08/21/2017 PREOPERATIVE DIAGNOSIS Intrauterine at 38-4/7 weeks, induction for oligohydramnios, arrest of dilatation. POSTOPERATIVE DIAGNOSIS Intrauterine at 38-4/7 weeks, induction for oligohydramnios, arrest of dilatation. PROCEDURE Primary lower segment transverse section via Pfannenstiel skin incision. SURGEON Dr. Lim ANESTHESIA Epidural FLUIDS 1300 crystalloid ESTIMATED BLOOD LOSS 500 cc URINE OUTPUT 100 cc at the end of the procedure. FINDINGS A live female was delivered vertex presentation, 's 8 at one minute, 9 at five minutes. weight was 7 pounds 12 ounces. PROCEDURE The patient was taken to the operating room where epidural anesthesia was found to be adequate. She was then prepped and draped in the normal sterile fashion in the dorsal supine position with a leftward tilt. A Pfannenstiel skin incision was made with a scalpel and carried down to the underlying layer of fascia. The fascia was nicked in the midline and the incision was extended laterally with curved Rodriguez scissors. Attention was turned to the inferior aspect of the incision which was grasped with Hayes clamps, elevated and the rectus muscles dissected off sharply. Attention was turned to the superior aspect of the incision which was grasped with Hayes clamps, elevated and the rectus muscles dissected off sharply. The rectus muscles were in the midline. The peritoneum was identified, grasped between two Brianne clamps, elevated and entered sharply with Metzenbaum scissors. This incision was extended superiorly and inferiorly with good visualization of the bladder. The bladder blade was inserted. The vesicouterine peritoneum was identified, grasped with pickups and entered sharply with Metzenbaum scissors. This incision was extended laterally and the bladder flap created digitally. The lower uterine segment was incised with a scalpel and the incision was extended laterally with bandage scissors. The vertex was then brought to the incision and delivered with a vacuum x3 pulled, the patient's muscle tone was extremely tight. The shoulders were delivered atraumatically. The oral and nasopharynx were bulb suctioned with a syringe. The cord was clamped after 45 seconds and cut. The infant was handed off to the waiting nurse. The placenta was delivered manually. The uterus was cleared of all clots and debris. The uterine incision was closed in two layers with 0-Vicryl. Hemostasis was assured. The gutters were cleared of all clots and debris. The fascia was repaired in a running fashion with 0-Vicryl and the skin was closed with alpesh. A pressure dressing was applied. Hemostasis was assured. The sponge, lap, needle instrument counts were correct x3. The patient was transferred to recovery room in stable condition. MD LORENZA Garcia/JOSÉ LUIS /11:34 PM /6:40 AM MONALISA
[2017-08-24 08:00] VITALS: BP 139/82; PULSE 82; RESP 16; TEMP 98.1
--- NOTE | 2017-08-24 08:11 | HHI.DS ---
Admission Date Aug 20, 2017 at 11:50 Admitting Diagnosis Diagnosis: : Primary : Female Pt Condition on Discharge: Good Discharge Disposition: Discharge Home Discharge Instructions Diet Instructions: As Tolerated, No Restrictions Activities You Can Perform: Shower Only-No Bath, Pelvic Rest Activities to Avoid: Prolonged Standing, Strenuous Activity, Driving, Sexual Activity Felice Dawn MD Aug 24, 2017 08:11
[2017-08-24] MEDS ORDERED: OXYC1TAB63 PO (08:14)
--- NOTE | 2017-08-24 08:21 | HHI.OB ---
Subjective Post Operative Day: 3 Remarks POD#3, doing well, daughter is on bili lights,may be discharged today Objective Vitals/I&O Vital Signs Date Time Temp Pulse Resp B/P (MAP) Pulse Ox O2 Delivery O2 Flow Rate FiO2 08/23/17 20:20 126/82 (97) 08/23/17 20:20 98.2 81 17 08/23/17 16:46 16 08/23/17 13:19 98.0 83 12 117/69 (85) 95 08/23/17 08:22 98.0 75 16 111/71 (84) 98 Result Diagram: 08/22/17 0815 Objective Remarks GENERAL: Well-nourished, well-developed patient. CARDIOVASCULAR: Regular rate and rhythm without murmurs, gallops, or rubs. RESPIRATORY: Breath sounds equal bilaterally. No accessory muscle use. ABDOMEN/GI: Abdomen soft, non-tender, bowel sounds present. incision c/intct, dry Fundus: Firm, non-tender at umbilicus. GENITOURINARY: Light to moderate bleeding. EXTREMITIES: No cyanosis or edema, non-tender, without signs of DVT. Medications and IVs Current Medications Medications (Trade) Dose Ordered Sig/Margie Route Start Time Stop Time Status Last Admin (NS Flush) 2 ml BID IV FLUSH 08/22/17 09:00 (NS Flush) 2 ml UNSCH PRN IV FLUSH 08/21/17 23:45 (Mylicon Chew) 80 mg QID PRN PO 08/21/17 23:45 (Tylenol) 650 mg Q6H PRN PO 08/21/17 23:45 (Motrin) 600 mg Q6H PRN PO 08/21/17 23:45 08/24/17 01:55 (Percocet 5-325 Mg) 1 tab Q4H PRN PO 08/21/17 23:45 08/24/17 01:55 (Percocet 5-325 Mg) 2 tab Q4H PRN PO 08/21/17 23:45 (Isa-Colace) 2 tab Q12H PRN PO 08/21/17 23:45 08/24/17 01:55 (Ambien) 5 mg HS PRN PO 08/21/17 23:45 (Zofran Inj) 4 mg Q6H PRN IV PUSH 08/21/17 23:45 Assessment/Plan Problem List: (1) Oligohydramnios ICD Codes: O41.00X0 - Oligohydramnios, unspecified trimester, not applicable or unspecified (2) Large for gestational age fetus affecting management of mother ICD Codes: O36.60X0 - Maternal care for excessive growth, unspecified trimester, not applicable or unspecified Status: Acute Assessment and Plan Doing well after C/S for failure to progress/POD#3 routine post op care Discharge today return to office in one week Discharge Planning routine Attending Attestation seen by Felice Murray MD Aug 24, 2017 08:21
== END 2017-08-24 14:08 | disposition home or self-care (01) | DRG 766 ==
LOC: H2EA 11:50 → H1EA 08-22 01:02
PROVIDERS: ADMIT Obstetrics & Gynecology; ATTEND Obstetrics & Gynecology
PROC: 3E0P7VZ Introduction of Hormone into Female Reproductive, Via Natural or Artificial Opening (ICD-10-PCS; 2017-08-20)
PROC: 10D00Z1 Extraction of Products of Conception, Low, Open Approach (ICD-10-PCS; principal; 2017-08-21)
PROC: 10907ZC Drainage of Amniotic Fluid, Therapeutic from Products of Conception, Via Natural or Artificial Opening (ICD-10-PCS; 2017-08-21)
PROC: 10H07YZ Insertion of Other Device into Products of Conception, Via Natural or Artificial Opening (ICD-10-PCS; 2017-08-21)
DX: O41.03X0 Oligohydramnios, third trimester, not applicable or unspecified (principal); O36.63X0 Maternal care for excessive fetal growth, third trimester, not applicable or unspecified; O62.0 Primary inadequate contractions; Z37.0 Single live birth; Z3A.38 38 weeks gestation of pregnancy
CPT/HCPCS: 59025; 80307; 81001; 85025; 85461; 86850; 86900; 86901; 90384; J0131; J0690; J1100; J1200; J1885; J2250; J2274; J2405; J2590; J2790; J3010; J7120